=== PATIENT | female | born 1925 | race Caucasian/White ===

== ENCOUNTER 2017-07-10 05:30 | Inpatient (IN) | payer MEDICARE, BC ==
[2017-07-08 11:53] LABS: BASOPHILS % (AUTO) 0.3 % (0-1); EOSINOPHILS # (AUTO) 0.1 X10'3 (0-0.9); EOSINOPHILS % (AUTO) 1.4 % (0-6); LYMPHOCYTES # (AUTO) 0.6 X10'3 (1.1-4.8); LYMPHOCYTES % (AUTO) 14.8 % (21-51); MEAN CORPUSCULAR HEMOGLOBIN 22.9 PG (27.0-31.0); MEAN CORPUSCULAR HGB CONC 32.8 % (33.0-36.5); MEAN CORPUSCULAR VOLUME 69.9 FL (78-98); MEAN PLATELET VOLUME 9.5 FL (7.4-10.4); MONOCYTES # (AUTO) 0.3 X10'3 (0-0.9); MONOCYTES % (AUTO) 7.9 % (2-12); NEUTROPHILS # (AUTO) 3.2 X10'3 (1.8-7.7); NEUTROPHILS % (AUTO) 75.6 % (42-75); PRE OP HEMATOCRIT 29.8 % (35.0-45.0); PRE OP PLATELET COUNT 223 X10'3 (140-440); RED BLOOD COUNT 4.26 X10'6 (4.20-5.60); RED CELL DISTRIBUTION WIDTH 18.2 % (11.5-14.5)
[2017-07-08 11:53] LABS: CLARITY,URINE Cloudy (Clear); COLOR,URINE Yellow (Yellow); GLUCOSE, URINE Negative (Neg); KETONES,URINE Negative (Neg); LEUKOCYTE ESTERASE ,URINE Moderate (Neg); NITRITES, URINE Positive (Neg); OCCULT BLOOD,URINE Negative (Neg); PH,URINE 6.5 (4.8-8.0); PROTEIN,URINE Negative (Neg)
[2017-07-08 11:55] LABS: UA COLLECTION TYPE CLN CATCH MIDSTREAM
[2017-07-08 12:01] LABS: BACTERIA,URINE 4+ /HPF (Neg); RBC,URINE NONE SEEN /HPF (0-2); SQUAMOUS EPITHELIAL CELL,UR FEW /LPF (FEW)
[2017-07-08 12:03] LABS: PRE OP PROTIME 15.1 SECONDS (9.0-12.0)
[2017-07-08 12:06] LABS: PRE OP INR 1.5 INR
[2017-07-08 12:07] LABS: PRE OP HEMOGLOBIN 9.8 g/dL (12.0-16.0)
[2017-07-08 12:20] LABS: ALBUMIN 3.6 G/DL (3.4-5.0); ALBUMIN/GLOBULIN RATIO 1.2 (1.1-1.5); ALKALINE PHOSPHATASE 103 IU/L (46-116); BLOOD UREA NITROGEN 14 MG/DL (7-18); BUN/CREATININE RATIO 18.7 (6.6-38.0); CHLORIDE 103 MMOL/L (99-107); CREATININE 0.75 MG/DL (0.40-0.90); PRE OP ALT 24 U/L (30-65); PRE OP ANION GAP 8 (8-16); PRE OP AST 21 U/L (10-37); PRE OP BILIRUB, TOTAL 0.8 MG/DL (0.0-1.0); PRE OP GLUCOSE 159 MG/DL (70-104); PRE OP POTASSIUM 3.9 MMOL/L (3.4-5.1); PRE OP SODIUM 141 MMOL/L (135-145); TOTAL CARBON DIOXIDE 30.1 MMOL/L (24-32); TOTAL PROTEIN 6.7 G/DL (6.4-8.2); eGFR 73 ML/MIN
[2017-07-08 12:23] LABS: HEMOGLOBIN A1C 7.6 % (4.5-6.2)
[2017-07-10] VITALS (23 sets, daily range): BP systolic 118–165; BP diastolic 56–100
[~2017-07-10] VITALS: Ht 162.6 cm; Wt 57.7 kg
[~2017-07-10 05:30] MED LIST: ALEN70TA48 PO; ATOR40TA PO; CHOL10002 PO; COU4T PO; DOCUMENT DATE & TIME OF BETA-BLOCKER PO ONE; HYDR12.5 PO; METF500T PO; MULT-1074 PO; OMEP20CA10 PO; RAMI5CAP PO; SOTA80TA PO; ceFOXitin 2 GM ADDvantage bag 100 ML IV ONE; famotidine 20mg tablet PO ONE; ringers solution, lacted 1,000 ML IV SCH
[2017-07-10] MEDS ORDERED: LIDOcaine 1% (10mg/ml) 2ml vial ONE (06:03)
[2017-07-10] MEDS ORDERED: ceFAZolin 1000mg inj ONE ×2 (06:41→06:55)
[2017-07-10] MEDS ORDERED: BUPIVAcaine/PF 2.5 mg/ml (0.25%) 30ml vial ONE (06:42)
[2017-07-10 07:18] LABS: INR 1.1 INR; PARTIAL THROMBOPLASTIN TIME 26 SECONDS (22-32); PROTHROMBIN TIME 11.6 SECONDS (9.0-12.0)
[2017-07-10] MEDS ORDERED: midazolam 2 mg/2 ml injection ONE (07:35)
[2017-07-10] MEDS ORDERED: fentaNYL /PF 50mcg/ml 5ml ampule ONE (07:36)
[2017-07-10] MEDS ORDERED: rocuronium 10mg/ml inj IV ONE (07:36)
[2017-07-10] MEDS ORDERED: propofol inj 20 ML IV ONE (07:36)
[2017-07-10] MEDS ORDERED: sevoflurane 250ml liquid IH ONE (07:44)
[2017-07-10] MEDS ORDERED: dextrose 50%-water 50ml dispensing syringe IV PRN ×2 (08:05)
[2017-07-10] MEDS ORDERED: HYDROcodone/acetaminophen 5mg/325mg tablet PO PRN (08:05)
[2017-07-10] MEDS ORDERED: naloxone 0.4 mg/ml inj IV PRN (08:05)
[2017-07-10] MEDS ORDERED: MESSAGE TO PHARMACY PO ONE (08:05)
[2017-07-10] MEDS ORDERED: CADD PCA waste documentation MC PRN (08:05)
[2017-07-10] MEDS ORDERED: glucagon, human recombinant 1mg kit SUBCUT PRN (08:05)
[2017-07-10] MEDS ORDERED: dextrose ORAL solution 15 GM/59 ML bottle PO PRN ×2 (08:05)
[2017-07-10] MEDS ORDERED: ringers solution, lacted 1,000 ML IV SCH (08:26)
[2017-07-10] MEDS ORDERED: MORPHINE 2MG in 2ml NS syringe IV PRN (08:30)
[2017-07-10] MEDS ORDERED: proCHLORperazine 10 MG/2 ml inj IV PRN (08:30)
[2017-07-10] MEDS ORDERED: meperidine/PF 50mg/ml syringe IV PRN ×3 (08:30)
[2017-07-10] MEDS: HYDROmorphone/NS 1 mg/ml CADD 50 ML IV SCH ×4 (09:00→15:00)
[2017-07-10] MEDS ORDERED: morphine 10mg/ml inj. ONE (09:30)
[2017-07-10] MEDS ORDERED: glycopyrrolate 0.2mg/ml inj ONE (09:51)
[2017-07-10] MEDS ORDERED: neostigmine methylsulfate 1 MG/ML 10ml vial ONE (09:51)
[2017-07-10] MEDS ORDERED: non-formulary drug (Alendronate Sodium* (Fosamax*) 1 TABLET) PO SCH (12:40)
[2017-07-10] MEDS ORDERED: morphine/NS 5 mg/ml CADD 50 ML IV SCH (15:50)
[2017-07-10] MEDS: ceFOXitin 1 GM ADDVANTAGE BAG 1,000 MG in normal saline 100ml IV soln 100 ML IV SCH (16:23)
[2017-07-10] MEDS: morphine/NS 5 mg/ml CADD 50 ML IV SCH ×4 (18:30→23:00)
[2017-07-10] MEDS ORDERED: normal saline 500ml IV soln 500 ML IV ONE (18:50)
[2017-07-10] MEDS: atorvastatin 20mg tablet PO SCH (21:04)
[2017-07-10] MEDS: vitamin D (cholecalciferol) 1,000 unit tablet PO SCH (21:05)
[2017-07-10] MEDS: sotalol 80mg tablet PO SCH (21:05)
[2017-07-10] MEDS: multivitamins, therapeutics tablet PO SCH (21:07)
[2017-07-10] MEDS: insulin Lispro (HumaLOG) vial - multi-dose SQ SCH (21:43)
[2017-07-10] MEDS: insulin glargine (Lantus) pen - multi-dose SQ SCH (21:45)
[2017-07-10] MEDS: ringers solution, lacted 1,000 ML IV SCH (21:51)
[2017-07-11] VITALS (13 sets, daily range): BP systolic 104–178; BP diastolic 45–93
[2017-07-11] MEDS: ceFOXitin 1 GM ADDVANTAGE BAG 1,000 MG in normal saline 100ml IV soln 100 ML IV SCH (00:01)
[2017-07-11] MEDS: morphine/NS 5 mg/ml CADD 50 ML IV SCH ×12 (01:00→23:00)
[2017-07-11 05:55] LABS: BASOPHILS % (AUTO) 0.1 % (0-1); EOSINOPHILS # (AUTO) 0.1 X10'3 (0-0.9); EOSINOPHILS % (AUTO) 1.1 % (0-6); LYMPHOCYTES # (AUTO) 0.5 X10'3 (1.1-4.8); LYMPHOCYTES % (AUTO) 6.3 % (21-51); MEAN CORPUSCULAR HEMOGLOBIN 23.2 PG (27.0-31.0); MEAN CORPUSCULAR VOLUME 70.2 FL (78-98); MEAN PLATELET VOLUME 9.9 FL (7.4-10.4); MONOCYTES # (AUTO) 0.8 X10'3 (0-0.9); MONOCYTES % (AUTO) 9.9 % (2-12); NEUTROPHILS # (AUTO) 6.6 X10'3 (1.8-7.7); NEUTROPHILS % (AUTO) 82.6 % (42-75); PLATELET COUNT 188 X10'3 (140-440); RED BLOOD COUNT 3.03 X10'6 (4.20-5.60); RED CELL DISTRIBUTION WIDTH 18.2 % (11.5-14.5)
[2017-07-11 06:29] LABS: ALANINE AMINOTRANSFERASE 29 U/L (12-78); ALBUMIN 2.4 G/DL (3.4-5.0); ALKALINE PHOSPHATASE 60 IU/L (46-116); ANION GAP 8 (8-16); ASPARTATE AMINO TRANSFERASE 32 U/L (10-37); BILIRUBIN,TOTAL 0.9 MG/DL (0.1-1.0); BLOOD UREA NITROGEN 13 MG/DL (7-18); BUN/CREATININE RATIO 14.3 (6.6-38.0); CALCIUM 7.4 MG/DL (8.5-10.1); CHLORIDE 106 MMOL/L (99-107); CREATININE 0.91 MG/DL (0.40-0.90); GLUCOSE 163 MG/DL (70-104); POTASSIUM 3.7 MMOL/L (3.5-5.1); SODIUM 140 MMOL/L (135-145); TOTAL CARBON DIOXIDE 25.9 MMOL/L (24-32); TOTAL PROTEIN 4.7 G/DL (6.4-8.2); eGFR 58 ML/MIN
[2017-07-11 06:32] LABS: HEMATOCRIT 21.2 % (35.0-45.0)
[2017-07-11] MEDS: ringers solution, lacted 1,000 ML IV SCH ×2 (07:30→16:33)
[2017-07-11] MEDS ORDERED: pantoprazole 40mg Tablet.DR PO SCH (08:00)
[2017-07-11] MEDS: enoxaparin 40mg/0.4ml syringe SQ SCH (10:33)
[2017-07-11] MEDS: sotalol 80mg tablet PO SCH ×2 (10:34→20:13)
[2017-07-11] MEDS: HYDROchlorothiazide 12.5mg capsule PO SCH (10:34)
[2017-07-11] MEDS: pantoprazole 40mg Tablet.DR PO SCH (10:34)
[2017-07-11] MEDS: insulin Lispro (HumaLOG) vial - multi-dose SQ SCH (13:24)
[2017-07-11] MEDS ORDERED: benzocaine/menthol oral lozeng 1 EACH BOX MM PRN (19:15)
[2017-07-11] MEDS: vitamin D (cholecalciferol) 1,000 unit tablet PO SCH (20:12)
[2017-07-11] MEDS: multivitamins, therapeutics tablet PO SCH (20:12)
[2017-07-11] MEDS: atorvastatin 20mg tablet PO SCH (20:12)
[2017-07-11] MEDS: insulin glargine (Lantus) pen - multi-dose SQ SCH (21:00)
[2017-07-11] MEDS: warfarin 5mg tablet PO SCH (21:45)
[2017-07-12] VITALS: BP 133/53
[2017-07-12] MEDS: morphine/NS 5 mg/ml CADD 50 ML IV SCH ×7 (01:00→13:00)
[2017-07-12] MEDS: ringers solution, lacted 1,000 ML IV SCH ×3 (03:09→23:30)
[2017-07-12 06:18] LABS: INR 1.1 INR; PROTHROMBIN TIME 11.1 SECONDS (9.0-12.0)
[2017-07-12 07:30] VITALS: BP 151/61
[2017-07-12] MEDS: enoxaparin 40mg/0.4ml syringe SQ SCH (08:17)
[2017-07-12] MEDS: HYDROchlorothiazide 12.5mg capsule PO SCH (08:19)
[2017-07-12] MEDS: sotalol 80mg tablet PO SCH ×2 (08:19→22:02)
[2017-07-12] MEDS ORDERED: pantoprazole 40mg Tablet.DR PO ONE (08:30)
[2017-07-12 12:10] VITALS: BP 144/77
[2017-07-12 12:20] LABS: BASOPHILS % (AUTO) 0 % (0-1); EOSINOPHILS # (AUTO) 0.1 X10'3 (0-0.9); EOSINOPHILS % (AUTO) 1.3 % (0-6); HEMATOCRIT 28.7 % (35.0-45.0); HEMOGLOBIN 9.4 g/dl (12.0-16.0); LYMPHOCYTES # (AUTO) 0.4 X10'3 (1.1-4.8); LYMPHOCYTES % (AUTO) 4.4 % (21-51); MEAN CORPUSCULAR HEMOGLOBIN 25.1 PG (27.0-31.0); MEAN CORPUSCULAR HGB CONC 32.7 % (33.0-36.5); MEAN CORPUSCULAR VOLUME 76.8 FL (78-98); MEAN PLATELET VOLUME 9.1 FL (7.4-10.4); MONOCYTES # (AUTO) 0.5 X10'3 (0-0.9); MONOCYTES % (AUTO) 6.1 % (2-12); NEUTROPHILS # (AUTO) 7.6 X10'3 (1.8-7.7); NEUTROPHILS % (AUTO) 88.2 % (42-75); PLATELET COUNT 161 X10'3 (140-440); RED BLOOD COUNT 3.74 X10'6 (4.20-5.60); RED CELL DISTRIBUTION WIDTH 21.3 % (11.5-14.5); WHITE BLOOD COUNT 8.6 X10'3 (4.5-11.0)
[2017-07-12 12:35] LABS: INR 1.2 INR; PROTHROMBIN TIME 12.1 SECONDS (9.0-12.0)
[2017-07-12 12:50] LABS: ALANINE AMINOTRANSFERASE 29 U/L (12-78); ALBUMIN 2.2 G/DL (3.4-5.0); ALBUMIN/GLOBULIN RATIO 0.8 (1.1-1.5); ALKALINE PHOSPHATASE 84 IU/L (46-116); ANION GAP 5 (8-16); ASPARTATE AMINO TRANSFERASE 28 U/L (10-37); BLOOD UREA NITROGEN 7 MG/DL (7-18); BUN/CREATININE RATIO 10.3 (6.6-38.0); CALCIUM 8.1 MG/DL (8.5-10.1); CHLORIDE 104 MMOL/L (99-107); CREATININE 0.68 MG/DL (0.40-0.90); GLUCOSE 160 MG/DL (70-104); POTASSIUM 3.5 MMOL/L (3.5-5.1); SODIUM 137 MMOL/L (135-145); TOTAL CARBON DIOXIDE 27.7 MMOL/L (24-32); eGFR 81 ML/MIN
[2017-07-12] MEDS: insulin Lispro (HumaLOG) vial - multi-dose SQ SCH (19:34)
[2017-07-12 20:00] VITALS: BP 165/84
[2017-07-12] MEDS: atorvastatin 20mg tablet PO SCH (22:01)
[2017-07-12] MEDS: multivitamins, therapeutics tablet PO SCH (22:01)
[2017-07-12] MEDS: vitamin D (cholecalciferol) 1,000 unit tablet PO SCH (22:01)
[2017-07-12] MEDS: warfarin 5mg tablet PO SCH (22:02)
[2017-07-12] MEDS: insulin glargine (Lantus) pen - multi-dose SQ SCH (22:15)
[2017-07-13] VITALS: BP 137/62
[2017-07-13 05:21] LABS: BASOPHILS % (AUTO) 0.1 % (0-1); EOSINOPHILS # (AUTO) 0.1 X10'3 (0-0.9); EOSINOPHILS % (AUTO) 1.7 % (0-6); HEMATOCRIT 29.2 % (35.0-45.0); HEMOGLOBIN 9.7 g/dl (12.0-16.0); LYMPHOCYTES # (AUTO) 0.4 X10'3 (1.1-4.8); LYMPHOCYTES % (AUTO) 6.7 % (21-51); MEAN CORPUSCULAR HEMOGLOBIN 25.2 PG (27.0-31.0); MEAN CORPUSCULAR HGB CONC 33.4 % (33.0-36.5); MEAN CORPUSCULAR VOLUME 75.5 FL (78-98); MEAN PLATELET VOLUME 9.9 FL (7.4-10.4); MONOCYTES # (AUTO) 0.5 X10'3 (0-0.9); MONOCYTES % (AUTO) 7.2 % (2-12); NEUTROPHILS # (AUTO) 5.4 X10'3 (1.8-7.7); NEUTROPHILS % (AUTO) 84.3 % (42-75); PLATELET COUNT 164 X10'3 (140-440); RED BLOOD COUNT 3.87 X10'6 (4.20-5.60); RED CELL DISTRIBUTION WIDTH 21.2 % (11.5-14.5); WHITE BLOOD COUNT 6.4 X10'3 (4.5-11.0)
[2017-07-13 05:37] LABS: INR 1.2 INR; PROTHROMBIN TIME 12.3 SECONDS (9.0-12.0)
[2017-07-13 05:46] LABS: ALANINE AMINOTRANSFERASE 28 U/L (12-78); ALBUMIN 2.3 G/DL (3.4-5.0); ALBUMIN/GLOBULIN RATIO 0.8 (1.1-1.5); ALKALINE PHOSPHATASE 89 IU/L (46-116); ANION GAP 9 (8-16); ASPARTATE AMINO TRANSFERASE 24 U/L (10-37); BILIRUBIN,TOTAL 1.3 MG/DL (0.1-1.0); BLOOD UREA NITROGEN 6 MG/DL (7-18); BUN/CREATININE RATIO 8.8 (6.6-38.0); CALCIUM 8.4 MG/DL (8.5-10.1); CHLORIDE 103 MMOL/L (99-107); CREATININE 0.68 MG/DL (0.40-0.90); GLUCOSE 128 MG/DL (70-104); POTASSIUM 3.2 MMOL/L (3.5-5.1); SODIUM 139 MMOL/L (135-145); TOTAL CARBON DIOXIDE 27.4 MMOL/L (24-32); TOTAL PROTEIN 5.3 G/DL (6.4-8.2); eGFR 81 ML/MIN
[2017-07-13 07:00] VITALS: BP 138/72
[2017-07-13] MEDS: HYDROchlorothiazide 12.5mg capsule PO SCH (08:51)
[2017-07-13] MEDS: sotalol 80mg tablet PO SCH (08:51)
[2017-07-13] MEDS: enoxaparin 40mg/0.4ml syringe SQ SCH (08:52)
[2017-07-13] MEDS: pantoprazole 40mg Tablet.DR PO SCH (08:52)
[2017-07-13] MEDS: ringers solution, lacted 1,000 ML IV SCH (09:30)
[2017-07-14] MEDS ORDERED: warfarin 10mg tablet PO SCH (21:00)
== END 2017-07-13 14:18 | DRG 330 ==
LOC: PAS IN 05:30 → EDSTATUS 07:30 → SUR 3N 12:12
PROVIDERS: ADMIT Surgery; ATTEND Surgery
PROC: 0DNW4ZZ Release Peritoneum, Percutaneous Endoscopic Approach (ICD-10-PCS; 2017-07-10)
PROC: 0DTK4ZZ Resection of Ascending Colon, Percutaneous Endoscopic Approach (ICD-10-PCS; principal; 2017-07-10 07:44)
PROC: 30233N1 Transfusion of Nonautologous Red Blood Cells into Peripheral Vein, Percutaneous Approach (ICD-10-PCS; 2017-07-11)
DX: C18.2 Malignant neoplasm of ascending colon (principal); D62 Acute posthemorrhagic anemia; E11.9 Type 2 diabetes mellitus without complications; I48.91 Unspecified atrial fibrillation; I10 Essential (primary) hypertension; Z90.49 Acquired absence of other specified parts of digestive tract; Z79.84 Long term (current) use of oral hypoglycemic drugs; Z79.899 Other long term (current) drug therapy; Z87.891 Personal history of nicotine dependence; Z82.49 Family history of ischemic heart disease and other diseases of the circulatory system
CPT/HCPCS: 36415; 80053; 81001; 82948; 83036; 85025; 85610; 85730; 86885; 86900; 86901; 86920; 87070; 87077; 87088; 87186; 88309; A7000; C1758; J0690; J0694; J1650; J1815; J2250; J2270; J2704; J2710; J3010; J3490; J7030; J7120; P9016